=== PATIENT | female | born 1940 | race Caucasian/White ===

== ENCOUNTER 2016-10-07 10:00 | Inpatient (IN) | payer OTHER ==
[~2016-10-07] VITALS: Ht 149.9 cm; Wt 53.9 kg
--- NOTE | 2016-11-21 13:23 | PREOPHP ---
DATE OF ADMISSION: 11/25/2016 REASON FOR ADMISSION: Consultation requested by Dr. Mega Dillon for medical evaluation and clearance of a 76-year-old woman about to undergo surgery. Thank you, Dr. Dillon, for allowing us participate in the care of this patient. Kyra Perez, issues with her right hip, is currently being admitted for open correction of the above problem. PAST SURGICAL HISTORY: The patient has had C4-C5 anterior fusion of her cervical spine. She had thoracic outlet surgery twice on the left. Also had 2 left shoulder surgeries, 2 being arthroscopic, the thoracic outlet being open. Had cyst surgery, appendectomy, hysterectomy, which was done vaginally, and had laparoscopic cholecystectomy. 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 PAST MEDICAL HISTORY: She also suffers from: 1. Systemic lupus erythematosus with Raynaud disease/phenomena. 2. Hypertension. 3. Has been in a lot of pain secondary to her hip issue. MEDICATIONS: She is currently taking the following medications: 1. Nexium 40 mg a day. 2. Huitohtp-G-24, 100 mg per day. 3. Flonase 1 spray in each nostril nightly. 4. Hydrochlorothiazide 25 mg daily. 5. Xylocaine or lidocaine patch. 6. Oxycodone 10/325 every 6 hours as needed. 7. Afrin nasal spray as needed. 8. Pataday 0.2 percent ophthalmic solution, 1 drop both eyes daily as needed. 9. Paxil 10 mg tablets takes 25 mg a day. 10. Potassium chloride 20 mEq CR daily. 11. Zantac 150 mg every night. 12. Probiotic Florastor 250 mg capsule daily. 13. Carafate 1 gram several times a day. 14. Valium 5 mg, a half to a whole every 8 hours as needed. 15. Diovan 320 mg daily for her blood pressure. ALLERGIES: SHE IS ALLERGIC TO ASPIRIN AND ALL FORMS OF NSAIDS WELL PHENOBARBITAL. SOCIAL HISTORY: The patient is a and has 2 children and 3 grandchildren. Daughter has been diagnosed with breast cancer. She still smokes cigarettes, has been doing so for many years. Does not drink any alcohol. Does drink coffee. 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 FAMILY HISTORY: Both parents are . Father at age 83 of his COPD. Was a diabetic and had high blood pressure. Mother at age 76 of breast cancer. Two sisters in good health. There is, however, family history of diabetes, heart, cancer, hypertension and stroke as well as thyroid issues. REVIEW OF SYSTEMS: HEENT: Denies any significant headaches. CARDIORESPIRATORY: Denies any chest pain or shortness of breath. GASTROINTESTINAL: No melena or hematemesis, however does have acid reflux. GENITOURINARY: No urgency, frequency. Rolfer post menopause. MUSCULOSKELETAL: Positive for right hip pain. NEUROPSYCHIATRIC: Unremarkable. GENERAL HEALTH: As above. PHYSICAL EXAMINATION: VITAL SIGNS: Patient's blood pressure was 110/62, pulse was 72 and regular, respirations were 19, temperature 98, height 5, feet, 10 inches, weight 120 pounds. GENERAL APPEARANCE: The patient was noted to be a well- developed, well-nourished female, alert, cooperative, in no apparent acute distress. Oriented to time, place, and person. HEENT: Head was atraumatic. The eyes pupils were equal, reactive to light and accommodation. Fundi were benign. Tympanic membranes were unremarkable. Nose was negative. Mouth was unremarkable. Fair oral hygiene was present. NECK: Was supple without any rigidity. Trachea was midline. Thyroid was unremarkable. Neck veins were flat. Carotid pulses were equal. No bruits were heard. Exam was unremarkable. CHEST: Was symmetrical. Breast and axillary exam did not reveal any masses. LUNGS: Clear to percussion and auscultation. HEART: PMI is 5th intercostal space at the midclavicular line. Regular sinus rhythm was noted. No significant murmurs, rubs, gallops being elicited. ABDOMEN: Soft, good bowel sounds were noted. Scars from prior surgery were noted. No significant organomegaly, masses, or tenderness. GENITOURINARY: Genitalia, pelvic and rectal exam per PCP up-to- date. EXTREMITIES: Do not reveal any clubbing, edema, or cyanosis. Peripheral pulses were physiologic. SKIN: Was moist and warm without any eruptions. No gross lymphadenopathy was noted. NEUROLOGIC: Exam was grossly intact. IMPRESSION: 1. Adductor tear and trochanteric bursitis, right hip. 2. Hypertension. 3. Systemic lupus erythematosus. 4. Gastroesophageal reflux disease. 5. Degenerative joint disease. 6. Stable health. DISCUSSION: Review of laboratory and other data revealed the following. Patient's chemistries including electrolytes, BUN and creatinine, liver function tests were normal. The patient's random glucose was 116. Calcium was somewhat low at 8.4. CBC revealed a mild anemia, hemoglobin of 11.2, hematocrit of 36.1. Patient's UA basically negative as was her PT and PTT. The patient's EKG was borderline with poor R-wave progression, minor ST-T wave changes. Chest x-ray was normal. The patient had a coronary angiogram done as an outpatient prior to this on a prior hospitalization, arteries were clean without any significant plaquing. The patient, however, will be seen by for her formal cardiac clearance as well. Dr. Dillon, I see no contraindication, however, to this patient undergoing current proposed surgery under the desired form of anesthesia. I feel she is a suitable candidate at this particular point in time, and will be more than happy to follow her along with you during her stay at [facility]. Thank you again Dr. Dillon for allowing us to participate in care this patient. Dictated By: Ramesh Dodge MD /johnna/jackson /Document#: [id number] RENZO
[2016-11-25] VITALS (23 sets, daily range): BP systolic 94–167; BP diastolic 41–77; PULSE 63–76; RESP 13–22; Ht 149.9 cm; Wt 53.9 kg
[2016-11-25] MEDS ORDERED: TRANEXAMIC ACID 1,000 MG in SOD CHLORIDE 0.9% 100 ML IVPB SCH (06:30)
[2016-11-25] MEDS ORDERED: CEFAZOLIN 2 GM/50 ML (PMX) 50 ML IVPB SCH (06:30)
[2016-11-25] MEDS ORDERED: BUPIVACAINE 0.5% (SDV) 30 ML, morphine SULFATE (PF) 8 MG, EPINEPHrine 0.3 MG, CLONIDINE... IRR SCH ×6 (06:30)
[2016-11-25] MEDS ORDERED: DEXAMETHASONE 1 MG TAB PO SCH (06:30)
[2016-11-25] MEDS ORDERED: GABAPENTIN 300 MG CAP PO SCH ×2 (06:30→21:00)
--- NOTE | 2016-11-25 11:12 | HPN ---
Date/Time of Note Date/Time of Note DATE: 11/25/16 TIME: 11:12 Interval H&P Admission Note Pt. seen H&P reviewed: No system changes DOE ANDERSON MD Nov 25, 2016 11:12
[2016-11-25] MEDS ORDERED: RANI150T5 PO (11:48)
[2016-11-25] MEDS ORDERED: POTA20TA15 PO (11:48)
[2016-11-25] MEDS ORDERED: PARO10TA26 PO (11:49)
[2016-11-25] MEDS ORDERED: OXYM15SP34 NASAL (11:50)
[2016-11-25] MEDS ORDERED: OLOP2.5D BOTH EYES (11:50)
[2016-11-25] MEDS ORDERED: OXYC-209 PO (11:51)
[2016-11-25] MEDS ORDERED: FLUT16SP17 NASAL (11:53)
[2016-11-25] MEDS ORDERED: HYD25 PO (11:53)
[2016-11-25] MEDS ORDERED: UBID100T7 PO (11:54)
[2016-11-25] MEDS ORDERED: ESOM40CA PO (11:54)
[2016-11-25] MEDS ORDERED: VALS320T11 PO (11:55)
[2016-11-25] MEDS ORDERED: DIAZ-90 PO (11:56)
[2016-11-25] MEDS ORDERED: SUCR1TAB56 PO (11:57)
[2016-11-25] MEDS ORDERED: TRET45CR TOP (11:57)
[2016-11-25] MEDS ORDERED: SACC250C PO (11:58)
[2016-11-25] MEDS ORDERED: FENTAnyl 50 MCG/ML VIAL ONE (15:14)
[2016-11-25] MEDS ORDERED: POLYMYXIN/BACITRACIN 1L IRRIG ONE (15:36)
[2016-11-25] MEDS ORDERED: THROMBIN 5000 UNIT VIAL ONE (15:36)
[2016-11-25] MEDS ORDERED: CEFAZOLIN 1 GM INJ ONE (16:00)
[2016-11-25] MEDS ORDERED: SUGAMMADEX SODIUM 200 MG/2 ML VIAL IV ONE (16:00)
[2016-11-25] MEDS ORDERED: SUCCINYLCHOLINE CHLORIDE 100 MG/5 ML SYG IV ONE (16:00)
[2016-11-25] MEDS ORDERED: PROPOFOL 20 ML ONE (16:00)
[2016-11-25] MEDS ORDERED: ROCURONIUM 50 MG INJ ONE (16:00)
[2016-11-25] MEDS ORDERED: LIDOCAINE 2% (SDV) 5 ML INJ ONE (16:00)
[2016-11-25] MEDS ORDERED: POLYMYXIN/BACITRACIN 1L IRRIG IRR ONE (16:16)
--- NOTE | 2016-11-25 16:24 | OPR ---
Date/Time of Note Date/Time of Note DATE: 11/25/16 TIME: 16:18 Operative Report Procedure Date: Nov 25, 2016 Preoperative Diagnosis Abductor tear with bursitis Postoperative Diagnosis 1. Abductor tear, right hip 2. Trochanteric bursitis, right hip Operation Performed 1. Open abductor repair, right 2. Open trochanteric bursectomy, right Surgeon see signature line Cyanide Pot Tender: MOHSEN HUNT MD Anesthesia Type: general Estimated Blood Loss: 0 - 10 ml's Transfusion Required: no Complications: no Pt Condition Post Procedure: stable Disposition: PACU Procedure Description YACHT CAPTAIN SURGEON: Mohsen Hunt MD was asked to be present at my request as a result of the complexity associated with this procedure including positioning of the extremity, positioning of the instrumentation and protection of the neurovascular structures. In my opinion, the assistance offered by a rn neurosurgical is insufficient and Priscilla Hunt should be compensated for his time. PROCEDURE IN DETAIL: Following the administration of general endotracheal anesthesia supplemented with a local anesthetic, the patient was placed in the left lateral decubitus position. The right lower extremity was then prepped and draped in the usual sterile fashion. A lateral incision was then made exposing the IT band and the fascia was incised. A portion of the posterior IT was excised and reshaped. The trochanteric bursa was then exposed. Severe bursal changes were noted. A bursectomy was completed with a good decompression. The outer abductor was normal. The medius was incised and the minimus exposed. There was a near complete tear of the that tendon. THe degenerative tissue was excised. The tendon was then approximated using a 5.5 Titanium, triple loaded anchor that placed in the trochanter. A solid approximation was completed. The wound was irrigated thoroughly. The wound was then closed in layers and a Prenio for the final cover. This was watertight. Estimated blood loss was procedure was 50 cc. DOE ANDERSON MD Nov 25, 2016 16:24
[2016-11-25] MEDS ORDERED: CEFAZOLIN 1 GM/50 ML (PMX) 50 ML IVPB SCH (16:30)
[2016-11-25] MEDS ORDERED: DIAZEPAM 5 MG TAB PO PRN (16:30)
[2016-11-25] MEDS ORDERED: ACETAMINOPHEN 500 MG TAB PO PRN (16:30)
[2016-11-25] MEDS ORDERED: OXYCODONE/ACETAMINOPHEN (5/325) TAB PO PRN (16:30)
[2016-11-25] MEDS ORDERED: morphine 4 MG/ML VIAL IV PRN (16:30)
[2016-11-25] MEDS ORDERED: TRANEXAMIC ACID 1,000 MG in SOD CHLORIDE 0.9% 100 ML IV ONE (16:30)
[2016-11-25] MEDS ORDERED: ONDANSETRON 4 MG INJ IV PRN (16:30)
[2016-11-25] MEDS ORDERED: morphine 2 MG INJ IV PRN (16:30)
[2016-11-25] MEDS ORDERED: MAGNESIUM HYDROXIDE 30ML CUP PO PRN (16:30)
[2016-11-25] MEDS ORDERED: DIPHENHYDRAMINE 50 MG INJ IV PRN (16:30)
[2016-11-25] MEDS ORDERED: ZOLPIDEM 5 MG TAB PO PRN (16:30)
--- NOTE | 2016-11-25 17:54 | RADRPT ---
PROCEDURE: XR Pelvis. CLINICAL INDICATION: Postoperative evaluation. Right hip bursa removal and abductor repair. TECHNIQUE: Single AP view of the pelvis. COMPARISON: None available. FINDINGS: There is no acute fracture, dislocation, or other osteoarticular abnormality. The alignme nt is normal. There is subcutaneous emphysema and edema overlying the right lateral aspect of the h ip joint. There is a metallic screw overlying the right greater trochanter, likely related to operat margaret repair. There are vascular calcifications. IMPRESSION: 1. Expected postoperative change involving the proximal right femur and surrounding soft tissues wi thout evidence of complication. 2. Vascular calcifications consistent with atherosclerosis. These findings discussed with the recovery nurse Yvette Vitamansi at 1750 hours on 11/25/2016. RPTAT: HLBP .Christopher Weston MD, Date Time Electronically viewed and signed by .Christopher Weston MD, MD on 11/25/2016 17:54 .P/
[2016-11-25] MEDS: DEXAMETHASONE 2 MG TAB PO SCH (18:00)
--- NOTE | 2016-11-25 18:18 | CONS ---
Date/Time of Note Date/Time of Note DATE: 11/25/16 TIME: 18:14 Assessment/Plan Assessment/Plan Problems: (1) Hip abductor tendonitis Status: Acute Comment: She is postop and appears to have done well with surgery. There are no immediate postop complications. We will follow the lead from her surgical directives regarding her rehabilitation. Qualifiers: Laterality: right Qualified Code: M76.891 - Tendinitis involving right hip abductors (2) Essential hypertension Status: Chronic Comment: To continue with valsartan or treatment. Holding hydrochlorothiazide at the moment. Please note she had a modestly low calcium and her outpatient evaluation. I am going to check her vitamin D levels and follow-up (3) Gastroesophageal reflux disease Status: Chronic Comment: Noted, use H2 receptor blockers Qualifiers: Esophagitis presence: without esophagitis Qualified Code: K21.9 - Gastroesophageal reflux disease without esophagitis (4) Rhinitis, allergic Status: Chronic Comment: Continue with her treatment. Qualifiers: Chronicity: chronic Allergic rhinitis trigger: unspecified Allergic rhinitis seasonality: unspecified seasonality Qualified Code: J30.9 - Chronic allergic rhinitis, unspecified seasonality, unspecified trigger Consultation Date/Type/Reason Admit Date/Time Nov 25, 2016 at 10:42 Initial Consult Date November 25, 2016 Type of Consultation: Internal medicine Reason for Consultation Hypertension; hyperlipidemia; rhinitis; gastroesophageal reflux disease; postoperative care Referring Provider: DOE ANDERSON MD 24 HR Interval Summary Free Text/Dictation She was seen immediately after being brought up to a regular room from recovery. This time she complains of a dry mouth. Detailed Summary Respiratory: no complaints Cardiovascular: no complaints Gastrointestinal: no complaints Exam/Review of Systems Vital Signs Vitals Vital Signs Date Time Temp Pulse Resp B/P Pulse Ox O2 Delivery O2 Flow Rate FiO2 11/25/16 17:41 70 18 101/45 95 Nasal Cannula 3.0 11/25/16 16:26 98.6 Exam Constitutional: alert, oriented Neck: non-tender, supple Cardiovascular: nl pulses, regular rate and rhythm Gastrointestinal: nl liver, spleen, non-tender, soft Medications Medications Current Medications Diazepam (Valium) 5 mg Q8H PRN PO ANXIETY; Start 11/25/16 at 16:30 Hydrochlorothiazide (Hydrochlorothiazide) 25 mg DAILY PO ; Start 11/26/16 at 09: 00 Paroxetine HCl (Paxil) 25 mg DAILY PO ; Start 11/26/16 at 09:00 Potassium Chloride (Klor-Con 20) 20 meq DAILY PO ; Start 11/26/16 at 09:00 Ranitidine HCl (Zantac) 150 mg HS PO ; Start 11/25/16 at 21:00 Valsartan (Diovan) 320 mg DAILY PO ; Start 11/26/16 at 09:00 Pantoprazole (Protonix Tab) 40 mg DAILY@06 PO ; Start 11/26/16 at 06:00 Miscellaneous Information 1 drop 1 drop DAILY BOTH EYES ; Start 11/26/16 at 09: 00; Status UNV Cefazolin Sodium (Ancef 1 Gm/50 ml (Pmx)) 50 ml @ 100 mls/hr Q8H IVPB ; Start 11/25/16 at 16:30; Stop 11/26/16 at 08:59 Senna/Docusate Sodium (Senokot-S) 1 tab BID PO ; Start 11/25/16 at 21:00 Simethicone (Mylicon) 80 mg TID PRN PO DISTENSION/GAS/BLOATING; Start 11/25/16 at 16:30 Magnesium Hydroxide (Milk Of Mag) 30 ml BID PRN PO CONSTIPATION; Start at 16:30 Acetaminophen (Tylenol Tab) 1,000 mg Q4H PRN PO TEMP GREATER THAN 100.4F; Start 11/25/16 at 16:30 Dexamethasone (Decadron) 2 mg Q6 PO ; Start 11/25/16 at 18:00; Stop 11/26/16 at 12:01 Gabapentin (Neurontin) 300 mg HS PO ; Start 11/25/16 at 21:00 Oxycodone/ Acetaminophen (Percocet (5/ 325)) 1 tab Q4H PRN PO PAIN LEVEL 1-5; Start 11/25/16 at 16:30 Oxycodone/ Acetaminophen (Percocet (5/ 325)) 2 tab Q4H PRN PO PAIN LEVEL 6-10; Start 11/25/16 at 16:30 Morphine Sulfate (morphine) 2 mg Q2H PRN IV PAIN LEVEL 1-5; Start 11/25/16 at 16:30 Morphine Sulfate (morphine) 4 mg Q4H PRN IV PAIN LEVEL 6-10; Start 11/25/16 at 16:30 Ondansetron HCl (Zofran Inj) 4 mg Q6H PRN IV NAUSEA AND/OR VOMITING; Start at 16:30 Diphenhydramine HCl 25 mg 25 mg Q6H PRN IV PRURITUS; Start 11/25/16 at 16:30 Lactated Ringer's (Lr) 1,000 ml @ 100 mls/hr Q10H IV ; Start 11/25/16 at 16:12 CHANTALE TOLEDO MD Nov 25, 2016 18:18
[2016-11-25] MEDS: LACTATED RINGER'S 1,000 ML IV SCH (18:35)
[2016-11-25] MEDS: SUCRALFATE 1 GM TAB PO SCH ×2 (18:35→21:00)
[2016-11-25] MEDS ORDERED: FLUTICASONE 0.05% 16 GM NAS SPRAY NASAL SCH (21:00)
[2016-11-25] MEDS ORDERED: UBIDECARENONE 100 MG PO SCH (21:00)
[2016-11-25] MEDS ORDERED: RANITIDINE 150 MG TAB PO SCH (21:00)
[2016-11-25] MEDS ORDERED: ATORVASTATIN 10 MG TAB PO SCH (21:00)
[2016-11-25] MEDS ORDERED: PAROXETINE (CR) 12.5 MG TAB PO SCH (21:00)
[2016-11-25] MEDS: SENNA/DOCUSATE NA (8.6MG/50MG) TAB PO SCH (21:00)
[2016-11-25] MEDS: OXYCODONE/ACETAMINOPHEN (5/325) TAB PO PRN (21:23)
[2016-11-25] MEDS: CALCIUM CARBONATE 1.25 GM TAB GTB SCH (21:24)
[2016-11-26] MEDS: DEXAMETHASONE 2 MG TAB PO SCH ×3 (00:02→12:00)
[2016-11-26 00:19] VITALS: BP 104/54; RESP 18
[2016-11-26] MEDS: CEFAZOLIN 1 GM/50 ML (PMX) 50 ML IVPB SCH ×2 (02:44→11:08)
[2016-11-26] MEDS: OXYCODONE/ACETAMINOPHEN (5/325) TAB PO PRN ×3 (05:19→13:22)
[2016-11-26] MEDS: LACTATED RINGER'S 1,000 ML IV SCH (05:20)
[2016-11-26 05:28] VITALS: BP 157/67; PULSE 67; RESP 18
[2016-11-26] MEDS ORDERED: VALSARTAN 160 MG TAB PO SCH ×2 (05:30→09:00)
[2016-11-26] MEDS ORDERED: HYDROCHLOROTHIAZIDE 25 MG TAB PO SCH (05:30)
[2016-11-26 05:52] LABS: BASOPHILS % 0.3 % (0.0-2.0); HEMATOCRIT 31.3 % (37.0-47.0); HEMOGLOBIN 10.1 g/dl (12.0-16.0); MEAN CORPUSCULAR HEMOGLOBIN 29.1 pg (29.0-33.0); MEAN CORPUSCULAR HGB CONC 32.3 g/dl (32.0-37.0); MEAN CORPUSCULAR VOLUME 90.2 fl (82.0-101.0); MEAN PLATELET VOLUME 10.4 fl (7.4-10.4); MONOCYTE # 0.3 10^3/ul (0.3-0.9); MONOCYTES % 4.3 % (0.0-11.0); NEUTROPHIL # 6.6 10^3/ul (1.6-7.5); NEUTROPHILS % 83.1 % (39.0-77.0); PLATELET COUNT 180 10^3/UL (140-415); RED BLOOD COUNT 3.47 10^6/ul (4.20-5.40); RED CELL DISTRIBUTION WIDTH 16.1 % (11.5-14.5); WHITE BLOOD COUNT 7.9 10^3/ul (4.8-10.8)
[2016-11-26] MEDS ORDERED: PANTOPRAZOLE (EC) 40 MG TAB PO SCH (06:00)
--- NOTE | 2016-11-26 06:17 | PDOCDIS ---
Discharge Instructions DIAGNOSIS Discharge Diagnosis Trochanteric bursitis with partial abductor tendon tear CONDITION Patient Condition: Good HOME CARE INSTRUCTIONS: Diet Instructions: Regular ACTIVITY: Activity Restrictions: Slowly Increase Activity Keep Limb Elevated Bathing Restrictions: Shower FOLLOW UP/APPOINTMENTS Follow-up Plan 2 weeks SCHOOL/WORK RELEASE May return to School/Work with: With Restrictions School/Work Release Comment: Use crutches for 4 weeks to limit pivoting and twisting. [facility] MD Nov 26, 2016 06:17
[2016-11-26 06:29] LABS: ALBUMIN 3.3 g/dl (3.3-4.9); ALBUMIN/GLOBULIN RATIO 1.26; BILIRUBIN,INDIRECT 0.5 mg/dl (0-1.1); BILIRUBIN,TOTAL 0.5 mg/dl (0.2-1.3); CREATININE 0.63 mg/dl (0.44-1.00); TOTAL PROTEIN 5.9 g/dl (6.1-8.1)
--- NOTE | 2016-11-26 06:56 | PN ---
Date/Time of Note Date/Time of Note DATE: 11/26/16 TIME: 06:55 24 hour Interval Summary Patient is awake and alert with no complaints. Physical Exam Sickle examination: Her wound is clean and dry. She is neurologically intact. There is no edema. Vital Signs Date Time Temp Pulse Resp B/P Pulse Ox O2 Delivery O2 Flow Rate FiO2 11/26/16 05:28 97.7 67 18 157/67 97 Nasal Cannula 2.0 Intake and Output 11/25/16 11/25/16 11/26/16 15:00 23:00 07:00 Intake Total 650 ml 1650 ml Output Total 25 ml 1100 ml Balance 625 ml 550 ml VTE Prophylaxis VTE Prophylaxis Intervention: anti-embolic stocking Lines/Catheters IV Catheter Type: Saline Lock Chinchilla in Place: No Results Result Diagram: 11/26/16 0447 11/26/167 Results 24hrs Laboratory Tests Test 11/26/16 04:47 White Blood Count 7.9 Red Blood Count 3.47 L Hemoglobin 10.1 L Hematocrit 31.3 L Mean Corpuscular Volume 90.2 Mean Corpuscular Hemoglobin 29.1 Mean Corpuscular Hemoglobin Concent 32.3 Red Cell Distribution Width 16.1 H Platelet Count 180 Mean Platelet Volume 10.4 Neutrophils % 83.1 H Lymphocytes % 12.0 L Monocytes % 4.3 Eosinophils % 0.0 Basophils % 0.3 Nucleated Red Blood Cells % 0.0 Neutrophils # 6.6 Lymphocytes # 1.0 Monocytes # 0.3 Eosinophils # 0.0 Basophils # 0.0 Nucleated Red Blood Cells # 0.0 Sodium Level 136 Potassium Level 4.0 Chloride Level 102 Carbon Dioxide Level 29 Anion Gap 9 Blood Urea Nitrogen 11 Creatinine 0.63 Glucose Level 112 Calcium Level 9.0 Total Bilirubin 0.5 Direct Bilirubin 0.00 Indirect Bilirubin 0.5 Aspartate Amino Transf (AST/SGOT) 40 Alanine Aminotransferase (ALT/SGPT) 36 Alkaline Phosphatase 72 Total Protein 5.9 L Albumin 3.3 Globulin 2.60 Albumin/Globulin Ratio 1.26 Assessment/Plan Assessment/Plan Assessment: Status post open trochanteric bursectomy. Plan: She will be discharged home with weightbearing as tolerated. She will follow-up in 2 weeks. Medications Medications Home Meds Reported Medications Saccharomyces Boulardii* (Florastor*) 250 Mg Cap, 250 MG PO DAILY, CAP 11/25/16 Sucralfate* (Carafate*) 1 Gm Tab, 1 GM PO AC MEALS AND BEDTIME, TAB 11/25/16 Tretinoin* (Tretinoin* Cream) 0.01% - 45 Gm Cream.gm., 1 APPLIC TOP HS, TUB 11/25/16 Diazepam* (Valium*) 5 Mg Tablet, 2.5-5 MG PO Q8 Y for ANXIETY, TAB 11/25/16 Valsartan* (Diovan*) 320 Mg Tablet, 320 MG PO DAILY, TAB 11/25/16 Ubidecarenone (COENZYME Q10) 100 Mg Tablet, 100 MG PO QHS, TAB 11/25/16 Esomeprazole Mag Trihydrate (Nexium) 40 Mg Capsule.dr, 40 MG PO DAILY, #30 CAP 11/25/16 Fluticasone Propionate* (Fluticasone Propionate* Nasal) 50 Mcg/[place] - 16 Gm [place].susp, 1 SPRAY NASAL QHS, #1 BOTTLE TO EACH NOSTRIL 11/25/16 Hydrochlorothiazide* (Hydrochlorothiazide*) 25 Mg Tab, 25 MG PO DAILY, #30 TAB 11/25/16 Oxycodone HCl/Acetaminophen (Percocet 10-325 mg Tablet) 1 Each Tablet, 1 EACH PO Q6 Y for PAIN, TAB 11/25/16 Oxymetazoline Hcl* (Afrin [place]*) 0.05% - 15 Ml [place], 2 SPRAYS NASAL BID, #1 EA to each nostril 11/25/16 Olopatadine* (Pataday*) 0.2% - 2.5 Ml Drops, 1 DROP BOTH EYES DAILY, EA 11/25/16 Paroxetine Hcl* (Paxil*) 10 Mg Tablet, 25 MG PO DAILY, TAB 11/25/16 Potassium Chloride* (K-Dur*) 20 Meq Tab.prt.sr, 20 MEQ PO DAILY, TAB.SA 11/25/16 Ranitidine Hcl* (Ranitidine Hcl*) 150 Mg Tablet, 150 MG PO HS, #30 TAB 11/25/16 DOE ANDERSON MD Nov 26, 2016 06:56
--- NOTE | 2016-11-26 06:57 | DS ---
Date/Time of Note Date/Time of Note DATE: 11/26/16 TIME: 06:56 Discharge Summary Admission/Discharge Info Admit Date/Time Nov 25, 2016 at 10:42 Discharge Date/Time November 26, 2016 following physical therapy Discharge Diagnosis Trochanteric bursitis with partial abductor tendon tear Patient Condition: Good Procedures Right open trochanteric bursectomy Hx of Present Illness Pain with multiple cortisone injection bursa over the last 10 years. Hospital Course Patient was admitted and underwent an uncomplicated procedure. Postop day 1 she is awake alert and comfortable to be discharged and followed up in 2 weeks Home Meds Reported Medications Saccharomyces Boulardii* (Florastor*) 250 Mg Cap, 250 MG PO DAILY, CAP 11/25/16 Sucralfate* (Carafate*) 1 Gm Tab, 1 GM PO AC MEALS AND BEDTIME, TAB 11/25/16 Tretinoin* (Tretinoin* Cream) 0.01% - 45 Gm Cream.gm., 1 APPLIC TOP HS, TUB 11/25/16 Diazepam* (Valium*) 5 Mg Tablet, 2.5-5 MG PO Q8 Y for ANXIETY, TAB 11/25/16 Valsartan* (Diovan*) 320 Mg Tablet, 320 MG PO DAILY, TAB 11/25/16 Ubidecarenone (COENZYME Q10) 100 Mg Tablet, 100 MG PO QHS, TAB 11/25/16 Esomeprazole Mag Trihydrate (Nexium) 40 Mg Capsule.dr, 40 MG PO DAILY, #30 CAP 11/25/16 Fluticasone Propionate* (Fluticasone Propionate* Nasal) 50 Mcg/[place] - 16 Gm [place].susp, 1 SPRAY NASAL QHS, #1 BOTTLE TO EACH NOSTRIL 11/25/16 Hydrochlorothiazide* (Hydrochlorothiazide*) 25 Mg Tab, 25 MG PO DAILY, #30 TAB 11/25/16 Oxycodone HCl/Acetaminophen (Percocet 10-325 mg Tablet) 1 Each Tablet, 1 EACH PO Q6 Y for PAIN, TAB 11/25/16 Oxymetazoline Hcl* (Afrin [place]*) 0.05% - 15 Ml [place], 2 SPRAYS NASAL BID, #1 EA to each nostril 11/25/16 Olopatadine* (Pataday*) 0.2% - 2.5 Ml Drops, 1 DROP BOTH EYES DAILY, EA 11/25/16 Paroxetine Hcl* (Paxil*) 10 Mg Tablet, 25 MG PO DAILY, TAB 11/25/16 Potassium Chloride* (K-Dur*) 20 Meq Tab.prt.sr, 20 MEQ PO DAILY, TAB.SA 11/25/16 Ranitidine Hcl* (Ranitidine Hcl*) 150 Mg Tablet, 150 MG PO HS, #30 TAB 11/25/16 Follow-up Plan 2 weeks Primary Care Provider Care Physician No Primary Pending Labs Laboratory Tests Test 11/26/16 04:47 White Blood Count 7.910^3/ul (4.8-10.8) Red Blood Count 3.4710^6/ul (4.20-5.40) Hemoglobin 10.1g/dl (12.0-16.0) Hematocrit 31.3% (37.0-47.0) Mean Corpuscular Volume 90.2fl (82.0-101.0) Mean Corpuscular Hemoglobin 29.1pg (29.0-33.0) Mean Corpuscular Hemoglobin Concent 32.3g/dl (32.0-37.0) Red Cell Distribution Width 16.1% (11.5-14.5) Platelet Count 01355^3/UL (140-415) Mean Platelet Volume 10.4fl (7.4-10.4) Neutrophils % 83.1% (39.0-77.0) Lymphocytes % 12.0% (15.0-51.0) Monocytes % 4.3% (0.0-11.0) Eosinophils % 0.0% (0.0-7.0) Basophils % 0.3% (0.0-2.0) Nucleated Red Blood Cells % 0.0/100WBC (0.0-0.0) Neutrophils # 6.610^3/ul (1.6-7.5) Lymphocytes # 1.010^3/ul (0.8-2.9) Monocytes # 0.310^3/ul (0.3-0.9) Eosinophils # 0.010^3/ul (0.0-0.5) Basophils # 0.010^3/ul (0.0-0.1) Nucleated Red Blood Cells # 0.010^3/ul (0.0-0.0) Sodium Level 136mmol/L (135-144) Potassium Level 4.0mmol/L (3.5-5.1) Chloride Level 102mmol/L (97-110) Carbon Dioxide Level 29mmol/L (21-31) Anion Gap 9 (8-16) Blood Urea Nitrogen 11mg/dl (7-20) Creatinine 0.63mg/dl (0.44-1.00) Glucose Level 112mg/dl (70-220) Calcium Level 9.0mg/dl (8.4-10.2) Total Bilirubin 0.5mg/dl (0.2-1.3) Direct Bilirubin 0.00mg/dl (0.00-0.20) Indirect Bilirubin 0.5mg/dl (0-1.1) Aspartate Amino Transf (AST/SGOT) 40IU/L (15-46) Alanine Aminotransferase (ALT/SGPT) 36IU/L (13-69) Alkaline Phosphatase 72IU/L (42-121) Total Protein 5.9g/dl (6.1-8.1) Albumin 3.3g/dl (3.3-4.9) Globulin 2.60g/dl (1.3-3.2) Albumin/Globulin Ratio 1.26 DOE ANDERSON MD Nov 26, 2016 06:57
[2016-11-26 07:00] VITALS: BP 113/54; RESP 18
[2016-11-26] MEDS: SUCRALFATE 1 GM TAB PO SCH ×2 (07:20→11:10)
[2016-11-26] MEDS ORDERED: PAROXETINE 10 MG TAB PO SCH (09:00)
[2016-11-26] MEDS ORDERED: OLOPATADINE 0.1% 5 ML OPH BOTH EYES SCH (09:00)
[2016-11-26] MEDS ORDERED: SACCHAROMYCES BOULARDII 250 MG CAP PO SCH (09:00)
[2016-11-26] MEDS ORDERED: POTASSIUM CHLORIDE (SR) 20 MEQ TAB PO SCH (09:00)
[2016-11-26] MEDS: SENNA/DOCUSATE NA (8.6MG/50MG) TAB PO SCH (09:32)
[2016-11-26] MEDS: CALCIUM CARBONATE 1.25 GM TAB GTB SCH (09:32)
== END 2016-11-26 13:29 | disposition home or self-care (01) | DRG 502 ==
LOC: EDSTATUS 11-25 10:00 → REC 11-25 10:42 → MS1 11-25 17:55
PROVIDERS: ADMIT Orthopaedic Surgery; ATTEND Orthopaedic Surgery
PROC: 0LQJ0ZZ Repair Right Hip Tendon, Open Approach (ICD-10-PCS; 2016-11-25)
PROC: 0MBL0ZZ Excision of Right Hip Bursa and Ligament, Open Approach (ICD-10-PCS; principal; 2016-11-25 14:30)
DX: M70.61 Trochanteric bursitis, right hip (principal); M32.9 Systemic lupus erythematosus, unspecified; D64.9 Anemia, unspecified; S76.211A Strain of adductor muscle, fascia and tendon of right thigh, initial encounter; I10 Essential (primary) hypertension; E78.5 Hyperlipidemia, unspecified; Z98.1 Arthrodesis status; Z85.528 Personal history of other malignant neoplasm of kidney; Z90.5 Acquired absence of kidney; I73.00 Raynaud's syndrome without gangrene; Z88.6 Allergy status to analgesic agent; K21.9 Gastro-esophageal reflux disease without esophagitis; M19.90 Unspecified osteoarthritis, unspecified site; J30.9 Allergic rhinitis, unspecified; X58.XXXA Exposure to other specified factors, initial encounter
CPT/HCPCS: 72170; 80053; 82306; 82330; 85025; 86999; 97163; J0171; J0690; J0735; J2274; J3010; J3370; J7120; J7999